=== PATIENT | female | born 1985 | race Hispanic/Latino ===

== ENCOUNTER 2019-01-24 01:36 | Emergency (ER) | payer BC ==
[2019-01-24] MEDS ORDERED: MORPHINE 4 MG/ML SYR ONE (02:17)
[2019-01-24] MEDS ORDERED: LIDOCAINE 1% 20 ML MDV ONE (02:18)
[2019-01-24 02:46] LABS: Absolute Lymphocytes (CBC) 3.2 K/uL (0.7-4.9); Basophils % 0.5 % (0-1.3); Hematocrit 36.8 % (36.0-45.0); Lymphocytes % 23.8 % (15.3-44.8); MPV 8.6 fL (7.6-11.3); RBC Red Blood Cell Count 4.37 M/uL (3.86-4.86)
[2019-01-24 02:56] LABS: ALT/SGPT 33 U/L (12-78); AST/SGOT 14 U/L (15-37); Albumin 3.2 g/dL (3.4-5.0); Alkaline Phosphatase 68 U/L (45-117); BUN Blood Urea Nitrogen 21 mg/dL (7-18); Bicarbonate 28 mmol/L (21-32); Bilirubin Direct < 0.1 mg/dL (0-0.2); Bilirubin Total 0.3 mg/dL (0.2-1.0); Glucose Level 107 mg/dL (74-106); Lipase 95 U/L (73-393); Potassium 3.6 mmol/L (3.5-5.1); Protein, Total 7.6 g/dL (6.4-8.2); Sodium Level 141 mmol/L (136-145)
--- NOTE | 2019-01-24 03:03 | ER ---
Nurse's Notes [facility] Name: Nilda Simeon Age: 33 yrs Sex: Female : 1985 Arrival Date: 01/24/2019 Time: 01:37 Bed 19 Private MD: Diagnosis: Cutaneous abscess of abdominal wall Presentation: 01/24 01:35 Presenting complaint: Patient states: "I have this lower abdominal bump that's aching cc3 since a week now". Transition of care: patient was not received from another setting of care. Onset of symptoms was January 24, 2019. Risk Assessment: Do you want to hurt yourself or someone else? Patient reports no desire to harm self or others. Initial Sepsis Screen: Does the patient meet any 2 criteria? HR > 90 bpm. Does the patient have a suspected source of infection? Yes: Skin breakdown/wound. Care prior to arrival: None. 01:35 Method Of Arrival: Ambulatory cc3 01:35 Acuity: NADINE 4 cc3 Triage Assessment: 01:35 General: Appears in no apparent distress. uncomfortable, Behavior is calm, cooperative, cc3 appropriate for age. Pain: Complains of pain in lower abdomen Quality of pain is described as aching. EENT: No signs and/or symptoms were reported regarding the EENT system. Neuro: Level of Consciousness is awake, alert, obeys commands, Oriented to person, place, time, situation, Appropriate for age. Cardiovascular: Denies chest pain, Capillary refill < 3 seconds in bilateral fingers Patient's skin is warm and dry. Respiratory: Airway is patent Respiratory effort is even, unlabored, Respiratory pattern is regular, symmetrical, Breath sounds are clear bilaterally. GI: Abdomen is round obese, bumps noted on the lower abdominal area. : No signs and/or symptoms were reported regarding the genitourinary system. Derm: Skin is intact, is healthy with good turgor, Skin is pink, warm \\T\\ dry. normal. Musculoskeletal: Circulation, motion, and sensation intact. Range of motion: intact in all extremities. 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 - Social history:: Smoking status: Patient/guardian denies using tobacco, never smoked. - Ebola Screening: : No symptoms or risks identified at this time. Screenin:35 Abuse screen: Denies threats or abuse. Denies injuries from another. Nutritional cc3 screening: No deficits noted. Tuberculosis screening: No symptoms or risk factors identified. Fall Risk Ambulatory Aid- None/Bed Rest/Nurse Assist (0 pts). Gait- Normal/Bed Rest/Wheelchair (0 pts) Mental Status- Oriented to own ability (0 pts). Assessment: 01:35 GI: Bowel sounds present X 4 quads. cc3 02:25 Reassessment: Patient appears in no apparent distress at this time. Patient and/or cc3 family updated on plan of care and expected duration. Pain level reassessed. Patient is alert, oriented x 3, equal unlabored respirations, skin warm/dry/pink. AGRICULTURAL PRODUCE SORTER Clifton did incision and drainage. 03:15 Reassessment: Patient appears in no apparent distress at this time. Patient and/or cc3 family updated on plan of care and expected duration. Pain level reassessed. Patient is alert, oriented x 3, equal unlabored respirations, skin warm/dry/pink. AGRICULTURAL PRODUCE SORTER Clifton discharged the patient home with prescriptions given. IV cannula removed and patient left ER vitally stable and ambulatory. No valuables left in the patient's room. Patient denies pain at this time. Patient states feeling better. Patient states symptoms have improved. Vital Signs: 01:35 BP 149 / 83; Pulse 106; Resp 17 S; Temp 98(O); Pulse Ox 98% on R/A; Weight 106.14 kg cc3 (R); Height 5 ft. 5 in. (165.10 cm) (R); Pain 8/10; 03:05 BP 103 / 77; Pulse 97; Resp 18 S; Pulse Ox 98% on R/A; Pain 0/10; cc3 01:35 Body Mass Index 38.94 (106.14 kg, 165.10 cm) cc3 ED Course: 01:35 Patient has correct armband on for positive identification. Placed in gown. Bed in low cc3 position. Call light in reach. Side rails up X2. Pulse ox on. NIBP on. 01:35 Arm band placed on right wrist. Patient notified of wait time. cc3 01:37 Patient arrived in ED. ds1 01:40 Gokul Kruger MD is Attending Physician. tw4 01:41 Delmy Stephenson is Primary Nurse. cc3 01:52 Inserted saline lock: 20 gauge in right antecubital area, using aseptic technique. jb5 Blood collected. 01:56 Alexsander Lazo FNP-C is [facility]. la1 02:03 Triage completed. cc3 02:25 Assist provider with I \\T\\ D: of an abscess on lower abdomen Set up I\\T\\D tray. Performed cc 3 by Alexsander GARCÍA Wound packed. iodoform gauze, Dressing with 4X4s, Patient tolerated well. 02:52 Eric Chan MD is Referral Physician. la1 03:15 IV discontinued, intact, bleeding controlled, No redness/swelling at site. Pressure cc3 dressing applied. Administered Medications: 02:20 Drug: morphine 4 mg {Note: RASS 0.} Route: IVP; Site: right antecubital; cc3 03:15 Follow up: Response: No adverse reaction; Pain is decreased; RASS: Alert and Calm (0) cc3 02:25 Drug: Lidocaine (1 %) 20 ml {Note: administered by SANCHEZ Lazo.} Volume: 20 ml; Route: cc3 Infiltration; 02:30 Follow up: Response: No adverse reaction cc3 03:00 Drug: Clindamycin 300 mg Route: PO; cc3 03:15 Follow up: Response: No adverse reaction cc3 Outcome: 03:02 Discharge ordered by . la1 03:15 Discharged to home ambulatory. cc3 03:15 Condition: stable 03:15 Discharge instructions given to patient, Instructed on discharge instructions, follow up and referral plans. medication usage, wound care, Demonstrated understanding of instructions, follow-up care, medications, wound care, Prescriptions given X 2. 03:23 Patient left the ED. cc3 Signatures: Aminta Reed ds1 Alexsander Lazo FNP-C FNP-ClaFlor Heller jb5 Gokul Kruger MD MD tw4 Delmy Stephenson cc3
--- NOTE | 2019-01-24 03:03 | EDPHYS ---
Physician Documentation [facility] Name: Nilda Simeon Age: 33 yrs Sex: Female : 1985 Arrival Date: 01/24/2019 Time: 01:37 Bed 19 Private MD: ED Physician Gokul Kruger HPI: 01/24 02:01 This 33 yrs old Female presents to ER via Unassigned with complaints of la1 Abdominal Pain, Nausea. 02:01 The patient presents with abdominal pain in the epigastric area, in the lower abdomen. la1 Onset: The symptoms/episode began/occurred today. The symptoms do not radiate. Associated signs and symptoms: Pertinent negatives: nausea and vomiting, fever. The symptoms are described as sharp. Modifying factors: The symptoms are alleviated by nothing, the symptoms are aggravated by pressure. Severity of pain: At its worst the pain was moderate. The patient has not experienced similar symptoms in the past. Pt reports she noticed an abscess to the suprapubic area on Thursday which has gotten larger in size. Reports waking up in the middle of the night with worsening pain in her belly. Pain is in the epigastric area. . 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 - Social history:: Smoking status: Patient/guardian denies using tobacco, never smoked. - Ebola Screening: : No symptoms or risks identified at this time. ROS: 02:03 Constitutional: Negative for fever, chills, and weight loss, Eyes: Negative for injury, la1 pain, redness, and discharge, ENT: Negative for injury, pain, and discharge, Neck: Negative for injury, pain, and swelling, Cardiovascular: Negative for chest pain, palpitations, and edema, Respiratory: Negative for shortness of breath, cough, wheezing, and pleuritic chest pain. 02:03 Back: Negative for injury and pain. 02:03 Abdomen/GI: Positive for abdominal pain, Negative for nausea, vomiting, and diarrhea, constipation, abdominal distension. 02:03 Skin: Positive for abscess, of the suprapubic area. Exam: 02:05 Constitutional: This is a well developed, well nourished patient who is awake, alert, la1 and in no acute distress. Head/Face: Normocephalic, atraumatic. Eyes: Pupils equal round and reactive to light, extra-ocular motions intact. Periorbital areas with no swelling, redness, or edema. ENT: Mucous membranes moist. Neck: Supple, full range of motion without nuchal rigidity, or vertebral point tenderness. No Meningismus. Chest/axilla: Normal chest wall appearance and motion. Nontender with no deformity. No lesions are appreciated. Cardiovascular: Regular rate and rhythm with a normal S1 and S2. No gallops, murmurs, or rubs. Normal PMI, no JVD. No pulse deficits. Respiratory: Lungs have equal breath sounds bilaterally, clear to auscultation No rales, rhonchi or wheezes noted. No increased work of breathing, no retractions or nasal flaring. 02:05 Abdomen/GI: Inspection: obese Bowel sounds: normal, in all quadrants, active, all quadrants, Palpation: soft, in all quadrants, mild abdominal tenderness, in the epigastric area, suprapubic area, right upper quadrant, left upper quadrant and left lower quadrant. 02:05 Skin: abscess, that is moderate sized, approximately 5 cm(s), of the suprapubic area, with induration, with surrounding cellulitis, that is mild. Vital Signs: 01:35 BP 149 / 83; Pulse 106; Resp 17 S; Temp 98(O); Pulse Ox 98% on R/A; Weight 106.14 kg cc3 (R); Height 5 ft. 5 in. (165.10 cm) (R); Pain 8/10; 03:05 BP 103 / 77; Pulse 97; Resp 18 S; Pulse Ox 98% on R/A; Pain 0/10; cc3 01:35 Body Mass Index 38.94 (106.14 kg, 165.10 cm) cc3 Procedures: 02:46 I \T\ D: Incision and drainage was performed for an abscess of the suprapubic area la1 Prepped with Betadine, Anesthetized with 10 ml's 1% Lidocaine. Incised with #10 blade. Drained moderate amount purulent fluid. serosanguinous fluid. Loculations removed. Abscess cavity explored. Packed with iodoform gauze, the patient tolerated the procedure well. MDM: 01:40 Patient medically screened. tw4 01/24 01:40 Order name: Basic Metabolic Panel 4 01/24 01:40 Order name: CBC with Diff; Complete Time: 02:50 4 01/24 01:40 Order name: Creatinine for Radiology 4 01/24 01:40 Order name: Hepatic Function 4 01/24 01:40 Order name: Lipase 4 01/24 01:40 Order name: IV Saline Lock; Complete Time: 02:11 tw4 01/24 01:40 Order name: Labs collected and sent; Complete Time: 02:11 tw4 01/24 02:05 Order name: Dressing - Wound; Complete Time: 03:01 la1 01/24 02:05 Order name: Gloves, Sterile; Complete Time: 02:23 la1 01/24 02:05 Order name: I\T\D Setup; Complete Time: 02:23 la1 01/24 02:05 Order name: Scalpel; Complete Time: 02:23 la1 Administered Medications: 02:20 Drug: morphine 4 mg {Note: RASS 0.} Route: IVP; Site: right antecubital; cc3 03:15 Follow up: Response: No adverse reaction; Pain is decreased; RASS: Alert and Calm (0) cc3 02:25 Drug: Lidocaine (1 %) 20 ml {Note: administered by SUPPLY CHAIN PROGRAM MANAGER Attema.} Volume: 20 ml; Route: cc3 Infiltration; 02:30 Follow up: Response: No adverse reaction cc3 03:00 Drug: Clindamycin 300 mg Route: PO; cc3 03:15 Follow up: Response: No adverse reaction cc3 Disposition: 06:03 Co-signature as Attending Physician, Gokul Kruger MD I agree with the [facility] plan of care. Disposition: 01/24/19 03:02 Discharged to Home. Impression: Cutaneous abscess of abdominal wall. - Condition is Stable. - Discharge Instructions: Skin Abscess, Incision and Drainage, Incision and Drainage, Care After. - Prescriptions for Clindamycin HCl 300 mg Oral Capsule - take 1 capsule by ORAL route every 6 hours for 10 days; 40 capsule. Tylenol- Codeine #3 300-30 mg Oral Tablet - take 2 tablet by ORAL route every 6 hours As needed; 6 tablet. - Medication Reconciliation Form, Thank You Letter, Antibiotic Education form. - Follow up: Eric Chan MD; When: 1 - 2 days; Reason: Wound Recheck, Recheck today's complaints, Re-evaluation by your physician. - Problem is new. - Symptoms have improved. Signatures: Dispatcher [employer] EDMS Alexsander Lazo, SENIOR TECHNOLOGIST-C SENIOR TECHNOLOGIST-Cla1 Gokul Kruger MD MD 4 Delmy Stephenson 3 Corrections: (The following items were deleted from the chart) 03:23 01:40 Urine Dipstick-Ancillary ordered. 4 cc3 03:23 01:40 Urine Test ordered. [facility] cc3 03:23 03:02 01/24/2019 03:02 Discharged to Home. Impression: Cutaneous abscess of abdominal cc3 wall. Condition is Stable. Forms are Medication Reconciliation Form, Thank You Letter, Antibiotic Education, Prescription Opioid Use. Follow up: Eric Chan; When: 1 - 2 days; Reason: Wound Recheck, Recheck today's complaints, Re-evaluation by your physician. Problem is new. Symptoms have improved. la1
[2019-01-24] MEDS ORDERED: CLINDAMYCIN HCL 150 MG CAP ONE (03:05)
== END 2019-01-24 03:23 | disposition home or self-care (01) ==
LOC: ER 01:36
PROC: 0J9C0ZZ Drainage of Pelvic Region Subcutaneous Tissue and Fascia, Open Approach (ICD-10-PCS; principal; 2019-01-24)
DX: L02.211 Cutaneous abscess of abdominal wall (principal)
CPT/HCPCS: 36415; 80048; 80076; 83690; 85025; 96374; 99284

== ENCOUNTER 2022-07-07 21:47 | Emergency (ER) | payer BC, OTHER ==
--- OUTSIDE RECORDS SUMMARY | 2022-07-07 21:50 | XMS REPORT | Continuity of Care Document ---
:1985 Author Organization [facility] t Address [address] [place] [id number] Care Team Providers Name Role Phone PURNIMA HUGHES Primary Care Physician Unavailable PREMA THAPA Attending Clinician Unavailable Sharon Santiago Attending Clinician SHARON HARRIS Attending Clinician Unavailable Pob, [facility] Main Attending Clinician Unavailable Purnima Boyer Attending Clinician PURNIMA HUGHES Attending Clinician Unavailable Doctor Unassigned, [place] Attending Clinician Unavailable EMILY SUAREZ Attending Clinician Unavailable Payers Payer Name Policy Type Policy Number Effective Date Expiration Date S ource Problems Condition Condition Condition Status Onset Resolution Last Treating Co mments Source Name Details Category Date Date Treatment Clinician Date 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 05-21 st cells cells 00:00: Hospita cannot cannot 00 l exclude exclude high grade high grade squamous squamous intraepith intraepith elial elial lesion on lesion on cytologic cytologic smear of smear of cervix cervix (ASC-H) (ASC-H) Cervical Cervical Disease Active Metho di high risk high risk 4-05 st HPV (human HPV (human 00:00: Ho spita papillomav papillomav 00 l irus) test irus) test positive positive Dysplasia Dysplasia Disease Active Met hodi of cervix, of cervix, -05 st low grade low grade 00:00: Hosp hillary (KRISTI 1) (KRISTI 1) 00 l KRISTI III KRISTI III Disease Active Overview: Meth bre with with 6-[address] severe severe 00:00: g of this Hospita dysplasia dysplasia 00 note l might be different from the original. Added automatic ally from request for surgery [id number] No known No known Disease Unive rs active active ity of problems problems [facility] Exercises Exercises Disease Active Overview: Methodi 5 to 6 5 to [address] times per times per g of this H ospita week week note l might be different from the original. Cardio and weight lifting for 1 hour, no SOB, CP. Allergies, Adverse Reactions, Alerts Allergy Allergy Status Severity Reaction(s) Onset Inactive Treating Comm ents Source Name Type Date Date Clinician SULFA DRUG Active Hives 2020-02 [facility] DYNE 2 ity of 00:00: [place] 00 Medical Branch Sulfa Propensi Active Hives 2020-02 Univers Dyne ty to 03-21 ity of adverse 00:00: [place] reaction 00 Medical s Branch Amoxicil Propensi Active GI Method i margarita-Pot ty to Intolerance 05 st Clavulan adverse 00:00: Hospita ate reaction 00 l s to drug Sulfa Propensi Active Rash Methodi (Sulfona ty to [address] mide adverse 00:00: Hospita Antibiot reaction 00 l ics) s to drug Family History Family Member Diagnosis Comments Start Date Stop Date Source Natural father Heart disease [facility] Maternal aunt Stomach cancer [facility] Natural mother Diabetes [facility] Paternal aunt Skin cancer [facility] Paternal uncle Cancer [facility] Natural sister Heart disease [facility] Social History Social Habit Start Date Stop Date Quantity Comments Source Exposure to Not sure University of SARS-CoV-2 (event) [facility] Gender identity [facility] Sexual orientation Method ist [facility] History of Social 2022-04-25 2022-04-[address] function 00:00:00 00:00:00 Hospital Alcohol intake 2021-05-21 2021-05-21 Lifetime [facility] 00:00:00 00:00:00 non-drinker Hospital (finding) Tobacco use and 2018-07-29 2018-07-29 Smokeless [facility] exposure 00:00:00 00:00:00 tobacco non-user Hospital Sex Assigned At [birth year] [facility] 00:00:00 00:00:00 Hospital Smoking Status Start Date Stop Date Source Never smoked tobacco [facility] Medications Ordered Filled Start Stop Current Ordering Indication Dosage Frequency Signature Comments Components Source Medication Medication Date Date Medication? Clinician (SIG) Name Name cholecalcif Yes 1000U QD Take 1,000 Methodi anne marie, 4-[address] vitamin D3, 10:43: mouth Hospi ta (VITAMIN 43 daily. l D3) 1,000 unit tablet APPLE CIDER Yes Take by Met hodi VINEGAR 4-[address] ORAL 10:43: Hospita 43 l ergocalcife Yes Take by Met hodi rol 4-[address] (DRISDOL) 10:43: Hospita 200 mcg/mL 43 l (8,000 unit/mL) drops busPIRone Yes 10mg Take 10 mg Me thodi (BUSPAR) 10 4-[address] MG tablet 10:43: as needed. Ho spita 43 l buPROPion Yes [id number] 150mg Take 1 U nivers XL 1-05 tablet by ity of (WELLBUTRIN 00:00: mouth [place] XL) 150 mg 00 daily. Medical 24 hr Branch tablet buPROPion Yes 1{tbl} QD Take 1 Meth bre XL 1-[address] (WELLBUTRIN 00:00: mouth Hospi ta XL) 150 MG 00 daily. l 24 hr tablet norgestimat 2020-02 Yes 1{tbl} Take 1 Un rosa maria e-ethinyl 2-03 tablet by ity o f estradioL 10:34: mouth [place] (SPRINTEC) 33 daily. Medical 0.25-35 Branch mg-mcg per tablet ergocalcife 2020-02 Yes Take by Uni vers rol, 2-03 mouth. ity of vitamin D2, 10:34: [place] (VITAMIN D 33 Medical ORAL) Branch busPIRone 2020-02- No [id number] 10mg Take 1 Univers 10 mg 2-04 16-18 tablet by ity of tablet 00:00: 05:59 mouth 2 [place] 00 :00 (two) Medical times Branch daily as needed (anxiety) for up to 45 days. buPROPion 2020-02- No [id number] 150mg Take 1 Univers XL 2-03 -05 tablet by bria of (WELLBUTRIN 00:00: [place] XL) 150 mg 00 :00 daily for [facility] 24 hr 45 days. Branch tablet YECENIAINTEC, 2018-0 Yes 1{tbl} Take 1 Meth bre 28, 0.25-35 - tablet by st mg-mcg per 00:00: mouth Hospit a tablet 00 daily. l Immunizations Ordered Filled Immunization Date Status Comments [facility] e Immunization Name Name SARS-COV-2 COVID-19 2021-01-11 Completed Unive rsity of MODERNA VACCINE 00:00:00 [facility] SARS-COV-2 COVID-19 2020-12-15 Completed Unive rsity of MODERNA VACCINE 00:00:00 [facility] Vital Signs Vital Name Observation Time Observation Value Comments Source Systolic blood 2021-02-20 22:42:00 106 mm[Hg] Univer sity of pressure [facility] Diastolic blood 2021-02-20 22:42:00 72 mm[Hg] Unive rsity of pressure [facility] Heart rate 2021-02-20 22:42:00 71 /min [facility] Body temperature 2021-02-20 22:42:00 37.17 Melinda [facility] [place] [facility] Body height 2021-02-20 22:42:[address] [facility] Body weight 2021-02-20 22:42:[address] [facility] BMI 2021-02-20 22:42:00 24.49 kg/m2 [facility] Oxygen saturation in 2021-02-20 22:42:00 99 /min [facility] Arterial blood by [facility] Pulse oximetry Branch Procedures This patient has no known procedures. Plan of Care Planned Activity Planned Date Details Comments Source Future Scheduled 2022-06-25 Hepatitis C [facility] Test 11:27:02 screening (procedure) [code = 388755212] Future Scheduled 2022-06-25 COVID-19 [facility]ACC[facility] ([facility] 11:27:02 - Booster for Moderna series) [code = COVID-19 VACCINE (3 - Booster for Moderna series)] Future Scheduled 2022-06-25 Screening for [facility] Hospital Test 11:27:02 malignant neoplasm of cervix (procedure) [code = 524272003] Future Scheduled 2022-06-25 INFLUENZA VACCINE Method ist Hospital Test 11:27:02 [code = INFLUENZA VACCINE] Encounters Start End Encounter Admission Attending Care Care Encounter Source Date/Time Date/Time Type Type Clinicians Facility Department ID 2021-05-21 2021-05-21 Outpatient ELIER [facility] [id number] 00:00:00 00:00:00 PREMA Karimi [facility] 2021-02-20 2021[facility]02-20 [facility] [id number] Univers 16:30:00 17:12:02 Visit Sharon LYNCH [id number] i ty pricila CEBALLOS [id number] Duran as THUY?BLEA [id number] Ms dical EY [address] [place] [address] MEDICAL OFFICE BUILDING 2021-02-20 2021-02-20 [facility] [id number] Univers 16:30:00 17:12:02 SHARON boocarrie [facility] 2021-02-20 2021-02-20 Outpatient Haresh HARRIS [facility] [id number] Univers 16:30:00 17:12:02 SHARON rajeevcarrie [facility] 2021-01-19 2021-01-19 Cargoman Omar, Jam Lab Main [facility] [id number] Univers 09:34:27 09:49:27 Visit Purnima Hughes [id number] rajeevy pricila [id number] [place] PROF[place] [id number] Ms dicdarron [facility] 353 Branch BUILDING 2021-01-19 2021-01-19 Outpatient R YOAV [facility] [id number] Univers 08:00:00 08:00:00 PURNIMA bria [facility] 2021-01-18 2021-01-18 [facility] [id number] Univers 10:24:08 11:32:11 Visit Purnima LYNCH [id number] it y rpicila CEBALLOS [id number] Duran as THUY?BLEA [id number] Ms adriel PROSTEPHANIA [address] [place] [address] MEDICAL OFFICE [facility] 2021-01-18 2021-01-18 Outpatient Haresh HUGHES [facility] [id number] Univers 10:00:00 11:32:11 PURNIMA ity of [facility] 2021-01-18 2021-01-18 Orders Doctor HEIDE [id number] Univers 00:00:00 00:00:00 Only Unassigned, WESLEY [id number] ity of [place] [facility] [id number] Duran as [id number] [address] 2021-01-18 2021-01-18 Telephone [place] [facility] [id number] [facility] 00:00:00 00:00:00 [facility] [id number] i ty of HENRY [id number] Duran as THUY?BLEA [id number] Ms xavi[address] MEDICAL OFFICE [facility] 2019-06-15 2019-06-15 Outpatient ERICK [facility] [id number] 00:00:00 00:00:00 TARRIK [address] Results This patient has no known results.
[2022-07-07] MEDS ORDERED: NA CHLORIDE 0.9% 1,000 ML ONE (23:15)
[2022-07-07 23:44] LABS: Specific Gravity 1.016 (1.005-1.030); Urine Bilirubin NEGATIVE (Negative); Urine Blood Negative (Negative); Urine Clarity Clear (Clear); Urine Color Light-Yellow (Yellow); Urine Glucose NEGATIVE (Negative); Urine Protein NEGATIVE (Negative); Urine Urobilinogen Normal (Normal); Urine pH 6.5 (5.0-7.0)
[2022-07-07 23:50] LABS: Absolute Lymphocytes (CBC) 0.9 K/uL (0.7-4.9); Hematocrit 34.3 % (36.0-45.0); Lymphocytes % 14.4 % (15.3-44.8); MCV 89.3 fL (80-100); MPV 7.7 fL (7.6-11.3); RBC Red Blood Cell Count 3.84 M/uL (3.86-4.86)
[2022-07-07 23:55] LABS: Specific Gravity 1.016 (1.005-1.030)
[2022-07-08 00:01] LABS: Albumin 2.9 g/dL (3.4-5.0); Bilirubin Total 0.2 mg/dL (0.2-1.0); Potassium 3.2 mEq/L (3.5-5.1)
--- NOTE | 2022-07-08 01:30 | EDPHYS ---
Physician Documentation [facility] Name: Nilda Simeon Age: 37 yrs Sex: Female : 1985 Arrival Date: 07/07/2022 Time: 21:47 Bed 17 Private MD: ED Physician Elie Sanders HPI: 07/07 22:43 This 37 yrs old Female presents to ER via Ambulatory with complaints of jmm Abdominal Pain, Vomiting, Fever. 22:43 The patient presents with abdominal pain. Onset: The symptoms/episode began/occurred jmm gradually, this morning. The symptoms do not radiate. Associated signs and symptoms: Pertinent positives: nausea and vomiting. The symptoms are described as achy. Modifying factors: The symptoms are alleviated by nothing, the symptoms are aggravated by vomiting. 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 patient also complains of sore throat. Denies dysuria. Denies flank pain. . 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 - Social history:: Smoking status: Patient denies any tobacco usage or history of. ROS: 22:43 Cardiovascular: Negative for chest pain, palpitations, and edema. jmm 22:43 Respiratory: Negative for shortness of breath, cough, wheezing, and pleuritic chest pain. 22:43 Constitutional: Positive for body aches. 22:43 Abdomen/GI: Positive for abdominal pain. 22:43 All other systems are negative. Exam: 22:43 Constitutional: This is a well developed, well nourished patient who is awake, alert, jmm and in no acute distress. Head/Face: atraumatic. Eyes: EOMI, no conjunctival erythema appreciated ENT: Moist Mucus Membranes Neck: Trachea midline, Supple Chest/axilla: Normal chest wall appearance and motion. Cardiovascular: Regular rate and rhythm. No edema appreciated Respiratory: Normal respirations, no respiratory distress appreciated 22:43 Back: Normal ROM Skin: General appearance color normal MS/ Extremity: Moves all extremities, no obvious deformities appreciated, no edema noted to the lower extremities Neuro: Awake and alert Psych: Behavior is normal, Mood is normal, Patient is cooperative and pleasant 22:43 Abdomen/GI: Inspection: abdomen appears normal, Bowel sounds: normal, Palpation: mild abdominal tenderness, in all quadrants. Vital Signs: 22:32 BP 131 / 94; Pulse 88; Resp 19; Temp 98.8(TE); Pulse Ox 100% ; Weight 71.21 kg; Height kd3 5 ft. 6 in. ; 07/08 00:03 BP 108 / 73; Pulse 81; Resp 16; Pulse Ox 100% on R/A; jb4 07/07 22:32 Body Mass Index 25.34 (71.21 kg, 167.64 cm) kd3 MDM: 07/07 22:43 Patient medically screened. [facility] 07/08 00:59 Differential diagnosis: bowel obstruction, cholecystitis, Cholelithiasis, jmm diverticulitis, non-specific abd pain. Data reviewed: vital signs, nurses notes. 01:28 Consideration of Admission/Observation Escalation of care including [facility] admission/observation considered. I considered the following discharge prescriptions or medication management in the emergency department Medications were administered in the Emergency Department. See MAR. Counseling: I had a detailed discussion with the patient and/or guardian regarding: the historical points, exam findings, and any diagnostic results supporting the discharge/admit diagnosis, lab results, radiology results, the need for outpatient follow up, to return to the emergency department if symptoms worsen or persist or if there are any questions or concerns that arise at home. 07/07 22:46 Order name: CBC with Diff; Complete Time: 23:57 [facility] 07/07 22:46 Order name: CMP; Complete Time: 00:38 [facility] 07/07 22:46 Order name: Lipase; Complete Time: 00:38 [facility] 07/07 22:46 Order name: Test, Urine; Complete Time: 00:01 [facility] 07/07 22:46 Order name: Urinalysis w/ reflexes; Complete Time: 23:46 [facility] 07/07 22:46 Order name: Strep [facility] 07/07 22:46 Order name: [place] Screen Profile; Complete Time: 00:38 [facility] 07/08 01:31 Order name: Throat Culture [facility] 07/07 22:46 Order name: CT Abd/Pelvis - IV Contrast Only [facility] 07/07 22:46 Order name: IV Saline Lock; Complete Time: 23:09 [facility] 07/07 22:46 Order name: Labs collected and sent; Complete Time: 23:09 [facility] Administered Medications: 07/07 23:12 Drug: NS 0.9% IV 1000 ml Route: IV; Rate: 1 bolus; Site: right antecubital; jb4 23:13 Not Given (Patient Refused): Ondansetron IVP 4 mg IVP once; over 2 minutes jb4 Disposition: 07/08 01:28 Chart complete. [facility] Disposition Summary: 07/08/22 01:29 Discharge Ordered Location: Home [facility] Condition: Stable [facility] Diagnosis - Abdominal pain, Generalized [facility] Followup: [facility] - With: Private Physician - When: 2 - 3 days - Reason: Recheck today's complaints, Continuance of care, Re-evaluation by your physician Followup: [facility] - With: Chino Akins MD - When: 2 - 3 days - Reason: Recheck today's complaints, Continuance of care, Re-evaluation by your physician Discharge Instructions: - Discharge Summary Sheet [facility] - Abdominal Pain, Adult [facility] Forms: - Medication Reconciliation Form [facility] - Thank You Letter [facility] - Antibiotic Education [facility] - Prescription Opioid Use [facility] Prescriptions: - ondansetron 4 mg Oral Tablet,disintegrating - take 1 tablet by ORAL route every 4-6 hours As needed as needed for nausea and m vomiting; 30 tablet; Refills: 0, Product Selection Permitted - Carafate 1 gram Oral Tablet - take 1 tablet by ORAL route 4 times per day take on an empty stomach, beginning jm on waking and last dose at bedtime; 100 tablet; Refills: 0, Product Selection Permitted - Pepcid 20 mg Oral Tablet - take 1 tablet by ORAL route once daily; 20 tablet; Refills: 0, Product [facility] Selection Permitted - dicyclomine 20 mg Oral Tablet - take 1 tablet by ORAL route 4 times per day As needed; 30 tablet; Refills: 0, [facility] Product Selection Permitted Signatures: Dispatcher [employer] EDAndre Celeste PA PA Mikhail Schneider RN RN jb4 Rosa Rodríguez RN RN kd3 Corrections: (The following items were deleted from the chart) 07/07 23:39 22:47 SARS-COV-2 Antigen Rapid+I.LAB.BRZ ordered. EDMS EDMS 23:39 22:47 Influenza Screen (A \T\ B)+BA.LAB.BRZ ordered. EDMS EDMS
--- NOTE | 2022-07-08 01:30 | ER ---
Nurse's Notes [facility] Name: Nilda Simeon Age: 37 yrs Sex: Female : 1985 Arrival Date: 07/07/2022 Time: 21:47 Bed 17 Private MD: Diagnosis: Abdominal pain, Generalized Presentation: 07/07 22:33 Chief complaint: Patient states: Yesterday my stomach was hurting and this morning I kd3 started feeling achy. Everything hurts, i did not take my temperature but i know i had fever at home. I vomited this morning. Coronavirus screen: Vaccine status: Patient reports receiving the 2nd dose of the covid vaccine. Ebola Screen: No symptoms or risks identified at this time. Initial Sepsis Screen: Does the patient meet any 2 criteria? No. Patient's initial sepsis screen is negative. Does the patient have a suspected source of infection? No. Patient's initial sepsis screen is negative. Risk Assessment: Do you want to hurt yourself or someone else? Patient reports no desire to harm self or others. Onset of symptoms was July 07, 2022. 22:33 Method Of Arrival: Ambulatory kd3 22:33 Acuity: NADINE 3 kd3 Triage Assessment: 22:35 General: Appears ill, Behavior is calm, cooperative. Pain: Complains of pain in body kd3 aches. GI: Abdomen is non-distended, Reports nausea, vomiting. 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 - Social history:: Smoking status: Patient denies any tobacco usage or history of. Screenin/23 01:48 [facility] ED Fall Risk Assessment (Adult) History of falling in the last 3 months, jb4 including since admission No falls in past 3 months (0 pts) Confusion or Disorientation No (0 pts) Score/Fall Risk Level 0 - 2 = Low Risk Oriented to surroundings, Maintained a safe environment. Abuse screen: Denies threats or abuse. Nutritional screening: No deficits noted. Tuberculosis screening: No symptoms or risk factors identified. Assessment: 07/07 23:35 General: Appears in no apparent distress. comfortable, Behavior is calm, cooperative, jb4 appropriate for age. Pain: Complains of pain in soar throat Pain does not radiate. Neuro: Level of Consciousness is awake, alert, obeys commands, Oriented to person, place, time, situation. Cardiovascular: Patient's skin is warm and dry. Respiratory: Airway is patent Respiratory effort is even, unlabored, Respiratory pattern is regular, symmetrical. GI: No signs and/or symptoms were reported involving the gastrointestinal system. : No signs and/or symptoms were reported regarding the genitourinary system. EENT: Throat is clear with gag reflex present. Derm: Skin is intact, Skin is pink, warm \T\ dry. 07/08 01:48 Reassessment: Patient appears in no apparent distress at this time. Patient and/or jb4 family updated on plan of care and expected duration. Pain level reassessed. Patient is alert, oriented x 3, equal unlabored respirations, skin warm/dry/pink. Vital Signs: 07/07 22:32 BP 131 / 94; Pulse 88; Resp 19; Temp 98.8(TE); Pulse Ox 100% ; Weight 71.21 kg; Height kd3 5 ft. 6 in. ; 07/08 00:03 BP 108 / 73; Pulse 81; Resp 16; Pulse Ox 100% on R/A; jb4 07/07 22:32 Body Mass Index 25.34 (71.21 kg, 167.64 cm) 3 ED Course: 07/07 21:52 Patient arrived in ED. ja2 21:53 [facility] 21:53 Elie Sanders MD is Attending Physician. [facility] 22:35 Triage completed. kd3 22:35 Arm band placed on right wrist. kd3 23:09 Initial lab(s) drawn, by [facility], sent to lab. Inserted saline lock: 20 gauge in right jw7 antecubital area, using aseptic technique. Blood collected. 23:09 [place] Screen Profile Sent. jw7 23:10 Strep Sent. jw7 23:10 CBC with Diff Sent. jw7 23:10 CMP Sent. jw7 23:10 Lipase Sent. jw7 23:10 Test, Urine Sent. jw7 23:10 Urinalysis w/ reflexes Sent. jw7 07/08 00:03 Mikhail Myers, DIAN is Primary Nurse. jb4 00:40 CT Abd/Pelvis - IV Contrast Only In Process Unspecified. EDMS 01:29 Chino Akins MD is Referral Physician. jmm 01:48 Patient has correct armband on for positive identification. Bed in low position. Call jb4 light in reach. Side rails up X 1. Client placed on continuous cardiac and pulse oximetry monitoring. NIBP monitoring applied. 01:48 No provider procedures requiring assistance completed. IV discontinued, intact, jb4 bleeding controlled, No redness/swelling at site. Pressure dressing applied. Administered Medications: 07/07 23:12 Drug: NS 0.9% IV 1000 ml Route: IV; Rate: 1 bolus; Site: right antecubital; jb4 23:13 Not Given (Patient Refused): Ondansetron IVP 4 mg IVP once; over 2 minutes jb4 Medication: 07/08 01:48 VIS not applicable for this client. jb4 Outcome: 01:29 Discharge ordered by MD. jmm 01:48 Discharged to home ambulatory. jb4 01:48 Condition: stable 01:48 Discharge instructions given to patient, Instructed on discharge instructions, follow up and referral plans. medication usage, Demonstrated understanding of instructions, follow-up care, medications, Prescriptions given X 4. 01:49 Patient left the ED. jb4 Signatures: Dispatcher [employer] EDMS Andre Macedo PA PA jmm Bryson, James, RN RN jb4 Trinity Bowers Kyli, RN RN kd3 Janelle Tellez7
[2022-07-08 02:49] VITALS: TEMP 98.8; O2SAT 100
[2022-07-08 02:51] VITALS: BP 108/73
--- NOTE | 2022-07-08 13:12 | RAD REPORT ---
EXAM DESCRIPTION: Abdomen Pelvis W Contrast CLINICAL HISTORY: 37 years Female abdominal pain, fever COMPARISON: None TECHNIQUE: Images were obtained in axial, sagittal, and coronal planes. This exam was performed according to our departmental dose-optimization program which includes use of Automated Exposure Control, adjustment of the mA and/or kV according to patient size and/or use of i terative reconstruction technique. FINDINGS: Prior cholecystectomy. Mild intrahepatic biliary dilatation centrally. No focal hepatic ab normality. Unremarkable spleen, pancreas, and adrenal glands bilaterally. No obstructing renal or ureteral calculi bilaterally. No hydronephrosis bilaterally. Moderately diste nded bladder. Deviation uterus of the right. Appendix not well identified however no secondary signs for appendicitis. Punctate densities within c olon possibly ingested medication or foreign bodies. No bowel obstruction,, perforation, or inflammat ion. No abnormality of abdominal aorta or portal vein. No adenopathy or abnormal fluid collections seen. No acute osseous abnormality. No abnormality lower lungs bilaterally. IMPRESSION: Punctate densities within colon, possibly related to residual contrast, and ingested med ication, or foreign bodies. Otherwise no acute intra-abdominal abnormality. Electronically signed by: Sonia Chappell MD 07/08/2022 1:24 AM CDT Due to temporary technical issues with the PACS/Fluency reporting system, reports are being signed by the in house radiologists without review as a courtesy to insure prompt reporting. The interpreting radiologist is fully responsible for the content of the report.
== END 2022-07-08 01:49 | disposition home or self-care (01) ==
LOC: ER 21:47
DX: R10.84 Generalized abdominal pain (principal); Z88.2 Allergy status to sulfonamides
CPT/HCPCS: 87070; 85025; 36415; 86308; 81025; 87081; 81003; 83690; 80053; 74177; Q9967; J7030

== ENCOUNTER 2022-07-24 16:50 | Emergency (ER) | payer OTHER, BC ==
--- OUTSIDE RECORDS SUMMARY | 2022-07-24 16:53 | XMS REPORT | Continuity of Care Document ---
:1985 Author Organization [facility] t Address [address] [facility] [address] [place] [id number] Care Team Providers Name Role Phone Asked, No Pcp Primary Care Physician Unavailable PREMA THAPA Attending Clinician Unavailable Sharon Santiago Attending Clinician SHARON HARRIS Attending Clinician Unavailable Pob, [facility] Main Attending Clinician Unavailable Purnima Boyer Attending Clinician PURNIMA HUGHES Attending Clinician Unavailable Doctor Unassigned, [place] Attending Clinician Unavailable EMILY SUAREZ Attending Clinician Unavailable Payers Payer Name Policy Type Policy Number Effective Date Expiration Date S ource Problems Condition Condition Condition Status Onset Resolution Last Treating Co mments Source Name Details Category Date Date Treatment Clinician Date 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 05-21 cells cells 00:00: Hospita cannot cannot 00 l exclude exclude high grade high grade squamous squamous intraepith intraepith elial elial lesion on lesion on cytologic cytologic smear of smear of cervix cervix (ASC-H) (ASC-H) Cervical Cervical Disease Active Metho di high risk high risk 05-21 HPV (human HPV (human 00:00: Ho spita papillomav papillomav 00 l irus) test irus) test positive positive Dysplasia Dysplasia Disease Active Met hodi of cervix, of cervix, 05-21 st low grade low grade 00:00: Hosp hillary (KRISTI 1) (KRISTI 1) 00 l KRISTI III 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 Added automatic ally from request for surgery [id number] Exercises Exercises Disease Active Overview: Methodi 5 to 6 5 to [address] times per times per g of this H ospita week week note l might be different from the original. Cardio and weight lifting for 1 hour, no SOB, CP. No known No known Disease Unive rs active active ity of problems problems [facility] Allergies, Adverse Reactions, Alerts Allergy Allergy Status Severity Reaction(s) Onset Inactive Treating Comm ents Source Name Type Date Date Clinician SULFA DRUG Active Hives 2020-02 Univers DYNE 2- ity of 00:00: [place] 00 Medical Branch [...] Stop Date Source Natural father Heart disease [facility] Maternal aunt Stomach cancer [facility] Natural mother Diabetes [facility] Paternal aunt Skin cancer [facility] Paternal uncle Cancer [facility] Natural sister Heart disease [facility] Social History Social Habit Start Date Stop Date Quantity Comments Source Gender identity [facility] Sexual orientation [facility] Exposure to Not sure University of SARS-CoV-2 (event) [facility] History of Social 2022-04-25 2022-04-[address] function 00:00:00 00:00:00 Hospital Alcohol intake 2021-05-21 2021-05-21 Lifetime [facility] 00:00:00 00:00:00 non-drinker Hospital (finding) Tobacco use and 2018-07-29 2018-07-29 Smokeless [facility] exposure 00:00:00 00:00:00 tobacco non-user Hospital Sex Assigned At [birth year] [facility] 00:00:00 00:00:00 Hospital Smoking Status Start Date Stop Date Source Never smoked tobacco [facility] Medications Ordered Filled Start Stop Current Ordering Indication Dosage Frequency Signature Comments Components Source Medication Medication Date Date Medication? Clinician (SIG) Name Name cholecalcif 2021-0 Yes 1000U QD Take 1,000 Methodi anne marie, 4-[address] vitamin D3, 10:43: mouth Hospi ta (VITAMIN 43 daily. l D3) 1,000 unit tablet APPLE CIDER 2021-0 Yes Take by Met hodi VINEGAR 4-[address] ORAL 10:43: Hospita 43 l ergocalcife 2021-0 Yes Take by Met hodi rol 4-[address] (DRISDOL) 10:43: Hospita 200 mcg/mL 43 l (8,000 unit/mL) drops busPIRone 2021-0 Yes 10mg Take 10 mg Me thodi (BUSPAR) 10 4-[address] MG tablet 10:43: as needed. Ho spita 43 l cholecalcif 2021-0 Yes 1000U QD Take 1,000 Methodi anne marie, 4-[address] vitamin D3, 10:43: mouth Hospi ta (VITAMIN 43 daily. l D3) 1,000 unit tablet APPLE CIDER 2021-0 Yes Take by Met hodi VINEGAR 4-[address] ORAL 10:43: Hospita 43 l ergocalcife 2-0 Yes Take by Met hodi rol 4-[address] (DRISDOL) 10:43: Hospita 200 mcg/mL 43 l (8,000 unit/mL) drops busPIRone 2021-0 Yes 10mg Take 10 mg Me thodi (BUSPAR) 10 4-[address] MG tablet 10:43: as needed. Ho spita 43 l buPROPion 2021-0 Yes 1{tbl} QD Take 1 Meth bre XL 1-[address] (WELLBUTRIN 00:00: mouth Hospi ta XL) 150 MG 00 daily. l 24 hr tablet buPROPion 2021-0 Yes [id number] 150mg Take 1 U nivers XL 1-05 tablet by ity of (WELLBUTRIN 00:00: mouth [place] XL) 150 mg 00 daily. Medical 24 hr Branch tablet buPROPion 2021-0 Yes 1{tbl} QD Take 1 Meth bre XL 1-[address] (WELLBUTRIN 00:00: mouth Hospi ta XL) 150 MG 00 daily. l 24 hr tablet norgestimat 2020-02 Yes 1{tbl} Take 1 Un rosa maria e-ethinyl 2-03 tablet by ity o f estradioL 10:34: mouth [place] (SPRINTEC) 33 daily. Medical 0.25-35 Branch mg-mcg per tablet ergocalcife 2020-02 Yes Take by Uni vers rol, 2-03 mouth. ity of vitamin D2, 10:34: [place] (VITAMIN D 33 Medical ORAL) Branch busPIRone 2020-02- No [id number] 10mg Take 1 Univers 10 mg 2-18 tablet by ity of tablet 00:00: 05:59 mouth 2 [place] 00 :00 (two) Medical times Branch daily as needed (anxiety) for up to 45 days. buPROPion 2020-02- No [id number] 150mg Take 1 Univers XL 2-03 01-05 tablet by ity of (WELLBUTRIN 00:00: 00:[place] XL) 150 mg 00 :00 daily for Medi jamal 24 hr 45 days. Branch tablet [facility] Yes 1{tbl} Take 1 Meth bre 28, 0.25-35 5-[address] mg-mcg per 00:00: mouth Hospit a tablet 00 daily. l SPRINTEC, Yes 1{tbl} Take 1 Meth bre 28, 0.25-35 5-[address] mg-mcg per 00:00: mouth Hospit a tablet 00 daily. l Immunizations Ordered Filled Immunization Date Status Comments [facility] e Immunization Name Name SARS-COV-2 COVID-19 2021-01-11 Completed Unive rsity of MODERNA VACCINE 00:00:00 [facility] SARS-COV-2 COVID-19 2020-12-15 Completed Unive rsity of MODERNA VACCINE 00:00:00 [facility] Vital Signs Vital Name Observation Time Observation Value Comments Source Systolic blood 2021-02-20 22:42:00 106 mm[Hg] Univer sity of pressure [facility] Diastolic blood 2021-02-20 22:42:00 72 mm[Hg] Unive rsity of pressure [facility] Heart rate 2021-02-20 22:42:00 71 /min [facility] Body temperature 2021-02-20 22:42:00 37.17 [facility] Body height 2021-02-20 22:42:00 167.6 cm [facility] Body weight 2021-02-20 22:42:00 68.811 kg [facility] BMI 2021-02-20 22:42:00 24.49 kg/m2 [facility] Oxygen saturation in 2021-02-20 22:42:00 99 /min [facility] Arterial blood by [facility] Pulse oximetry Branch Procedures This patient has no known procedures. Plan of Care Planned Activity Planned Date Details Comments Source Future Scheduled 2022-06-25 COVID-19 VACCINE (3 [facility] Test 11:27:02 - Booster for Moderna series) [code = COVID-19 VACCINE (3 - Booster for Moderna series)] Future Scheduled 2022-06-25 Screening for [facility] Test 11:27:02 malignant neoplasm of cervix (procedure) [code = 565520317] Future Scheduled 2022-06-25 INFLUENZA VACCINE [facility] Test 11:27:02 [code = INFLUENZA VACCINE] Future Scheduled 2022-06-25 Hepatitis C [facility] Test 11:27:02 screening (procedure) [code = 227989453] Future Scheduled 2022-06-25 COVID-19 VACCINE (3 [facility] Test 11:27:02 - Booster for Moderna series) [code = COVID-19 VACCINE (3 - Booster for Moderna series)] Future Scheduled 2022-06-25 [facility] for [facility] Test 11:27:02 malignant neoplasm of cervix (procedure) [code = 644990602] Future Scheduled 2022-06-25 INFLUENZA VACCINE [facility] Test 11:27:02 [code = INFLUENZA VACCINE] Future Scheduled 2022-06-25 [facility]atitis [facility] Test 11:27:02 screening (procedure) [code = 319629047] Encounters Start End Encounter Admission Attending Care Care Encounter Source Date/Time Date/Time Type Type Clinicians Facility Department ID 2021-05-21 2021-05-21 Outpatient ELIER [facility] [id number] [address] [place] [address] 00:00:00 00:00:00 PREMA [address] 2021-02-20 2021-02-20 [facility] [id number] Univers 16:30:00 17:12:02 Visit Sharon LYNCH [id number] i ty of [place] [id number] Duran as THUY?BLEA [id number] [address] 2021-02-20 2021-02-20 [facility] [id number] Univers 16:30:00 17:12:02 SHARON fraser [facility] 2021-02-20 2021-02-20 [facility] [id number] Univers 16:30:00 17:12:02 SHARON fraser [facility] 2021-01-19 2021-01-19 [employer] Omar, [facility] Lab Main [facility] [id number] Univers 09:34:27 09:49:27 Visit Purnima Hughes [id number] ity pricila [facility] [id number] [place] [id number] Or adriel [address] 2021-01-19 2021-01-19 [facility] [id number] Univers 08:00:00 08:00:00 PURNIMA fraser [facility] 2021-01-18 2021-01-18 [facility] [id number] Univers 10:24:08 11:32:11 Visit Purnima LYNCH [id number] it y of [facility] [id number] Duran as THUY?BLEA [id number] [address] 2021-01-18 2021-01-18 Outpatient [facility] [id number] Univers 10:00:00 11:32:11 PURNIMA fraser [facility] 2021-01-18 2021-01-18 Orders Doctor JAEGER [id number] Univers 00:00:00 00:00:00 Only Unassigned, WES[place] [id number] ity of [place] [facility] [id number] [place]an as [id number] [address] 2021-01-18 2021-01-18 Telephone Steven, [facility] [id number] 00:00:00 00:00:00 [facility] [id number] i ty of [place] [id number] Duran as THUY?BLEA [id number] Or adriel ROSS [address] [place] [address] MEDICAL OFFICE BUILDING 2019-06-15 2019-06-15 [facility] [id number] [address] [place] [address] 00:00:00 00:00:00 EMILY [address] Results This patient has no known results.
--- NOTE | 2022-07-24 18:29 | EDPHYS ---
Physician Documentation [facility] Name: Nilda Simeon Age: 37 yrs Sex: Female : 1985 Arrival Date: 07/24/2022 Time: 16:50 Bed 10 Private MD: ED Physician Rui Bailey HPI: 07/24 17:15 This 37 yrs old Female presents to ER via Ambulatory with complaints of Ear cp Pain. 17:15 The patient presents with a fullness, hearing loss, partial, pain, that is acute, cp tinnitus. The complaints affect the right ear and left ear. Onset: The symptoms/episode began/occurred 2 week(s) ago. Associated signs and symptoms: Pertinent positives: sore throat, Pertinent negatives: cough, fever, rhinorrhea, sinus trouble, vertigo, vomiting. Severity of symptoms: in the emergency department the symptoms are unchanged despite home interventions. Historical: - Allergies: 16:57 Sulfa (Sulfonamide Antibiotics); ll1 - PMHx: 16:57 None; ll1 - PSHx: 16:57 LEEP; ll1 - Immunization history:: Adult Immunizations up to date. - Social history:: Smoking status: Patient denies any tobacco usage or history of. ROS: 17:20 Constitutional: Negative for body aches, chills, fever, poor PO intake. cp 17:20 Eyes: Negative for injury, pain, redness, and discharge. cp 17:20 ENT: Positive for ear pain, hearing loss, sore throat, tinnitus, Negative for drainage from ear(s), sinus congestion, sinus pain, difficulty swallowing, difficulty handling secretions. 17:20 Cardiovascular: Negative for chest pain, palpitations. 17:20 Respiratory: Negative for cough, shortness of breath, wheezing. 17:20 Abdomen/GI: Negative for abdominal pain, vomiting, diarrhea, constipation. 17:20 Neuro: Negative for altered mental status, headache, weakness. 17:20 All other systems are negative. Exam: 17:25 Constitutional: The patient appears in no acute distress, alert, awake, non-toxic, well cp developed, well nourished. 17:25 Head/Face: Normocephalic, atraumatic. cp 17:25 Eyes: Periorbital structures: appear normal, Conjunctiva: normal, no exudate, no injection, Sclera: no appreciated abnormality, Lids and lashes: appear normal, bilaterally. 17:25 ENT: External ear(s): are unremarkable, Ear canal(s): cerumen impaction, that is severe, bilaterally, TM's: not visable, Nose: is normal, Mouth: Lips: moist, Oral mucosa: pink and intact, moist, Posterior pharynx: is normal, airway is patent, no erythema, no exudate. 17:25 Neck: ROM/movement: is normal, is supple, without pain, no range of motions limitations. Vital Signs: 16:55 BP 136 / 106; Pulse 62; Resp 17; Temp 98.4; Pulse Ox 100% ; ll1 MDM: 17:04 Patient medically screened. cp 17:30 Differential diagnosis: otitis media, otitis externa, ruptured TM, foreign body, cp cerumen impaction, barotrauma . 18:28 Data reviewed: vital signs, nurses notes. cp 18:28 Counseling: I had a detailed discussion with the patient and/or guardian regarding: the cp historical points, exam findings, and any diagnostic results supporting the discharge/admit diagnosis, lab results, to return to the emergency department if symptoms worsen or persist or if there are any questions or concerns that arise at home. Response to treatment: the patient's symptoms have markedly improved after treatment, and as a result, I will discharge patient. 07/24 16:58 Order name: Strep cp 07/24 18:04 Order name: Throat Culture EDMS 07/24 17:07 Order name: Misc. Order: Ear irrigation for impacted cerumen; Complete Time: 18:33 zm Administered Medications: No medications were administered Disposition Summary: 07/24/22 18:29 Discharge Ordered Location: Home cp Problem: new cp Symptoms: have improved cp Condition: Stable cp Diagnosis - Impacted cerumen, bilateral cp - Acute pharyngitis, unspecified cp Followup: cp - With: Marissa Knight MD - When: 2 - 3 days - Reason: Worsening of condition Discharge Instructions: - Discharge Summary Sheet cp - Earwax Buildup, Adult cp - Pharyngitis cp - Sore Throat cp - Ear Irrigation cp Forms: - Medication Reconciliation Form cp - Thank You Letter cp - Antibiotic Education cp - Prescription Opioid Use cp Prescriptions: - Ciprodex 0.3-0.1 % Otic drops,suspension - instill 4 drops by OTIC route every 12 hours for 7 days , for ears ONLY; 1 jmm unit; Refills: 0, Product Selection Permitted - Cortisporin-TC 3.3-3-10-0.5 mg/mL Otic drops,suspension - instill 4 drops by OTIC route every 6 hours; 1 unit; Refills: 0, Product cp Selection Permitted Addendum: 07/25/2022 20:57 Co-signature as Attending Physician, Rui CXO was immediately available on-site m s3 in the Emergency Department for consultation in the care of the patient. Signatures: Dispatcher [employer] EDMS Ramesh Bermudez PA PA cp Lewis, Lynsay, RN RN ll1 Rui Bailey DO DO ms3 Yesica Duggan Corrections: (The following items were deleted from the chart) 07/24 16:57 16:57 PMHx: HPV; ll1 ll1
--- NOTE | 2022-07-24 18:29 | ER ---
Nurse's Notes [facility] Name: Nilda Simeon Age: 37 yrs Sex: Female : 1985 Arrival Date: 07/24/2022 Time: 16:50 Bed 10 Private MD: Diagnosis: Impacted cerumen, bilateral;Acute pharyngitis, unspecified Presentation: 07/24 16:55 Chief complaint: Patient states: B ear pain, muffled hearing, and hearing noises for ll1 the past 2 weeks off/on. Coronavirus screen: Client denies travel out of the [place] in the last 14 days. At this time, the client does not indicate any symptoms associated with coronavirus-19. Ebola Screen: Patient denies travel to an Ebola-affected area in the 21 days before illness onset. Initial Sepsis Screen: Does the patient meet any 2 criteria? No. Patient's initial sepsis screen is negative. Does the patient have a suspected source of infection? Yes: Other: ears. Risk Assessment: Do you want to hurt yourself or someone else? Patient reports no desire to harm self or others. Onset of symptoms was July 10, 2022. 16:55 Method Of Arrival: Ambulatory ll1 16:55 Acuity: NADINE 4 ll1 Triage Assessment: 16:57 General: Appears in no apparent distress. Behavior is calm, cooperative, appropriate ll1 for age. Pain: Complains of pain in right ear and left ear Pain currently is 2 out of 10 on a pain scale. EENT: Reports pain ringing. Historical: - Allergies: 16:57 Sulfa (Sulfonamide Antibiotics); ll1 - PMHx: 16:57 None; ll1 - PSHx: 16:57 LEEP; ll1 - Immunization history:: Adult Immunizations up to date. - Social history:: Smoking status: Patient denies any tobacco usage or history of. Screenin:47 [facility] ED Fall Risk Assessment (Adult) History of falling in the last 3 months, iw including since admission. Abuse screen: Denies threats or abuse. Denies injuries from another. Nutritional screening: No deficits noted. Tuberculosis screening: No symptoms or risk factors identified. Assessment: 18:47 Reassessment: Patient appears in no apparent distress at this time. Patient and/or iw family updated on plan of care and expected duration. Pain level reassessed. Patient states feeling better. Patient states symptoms have improved. Vital Signs: 16:55 BP 136 / 106; Pulse 62; Resp 17; Temp 98.4; Pulse Ox 100% ; ll1 ED Course: 16:53 Patient arrived in ED. mr 16:54 Ramesh Bermudez PA is PHCP. cp 16:55 Rui Bailey DO is Attending Physician. cp 16:57 Triage completed. ll1 16:58 Arm band placed on Patient placed in an exam room, on a stretcher. ll1 17:06 Strep Sent. zm 18:28 Marissa Knight MD is Referral Physician. cp 18:33 Jina Ruvalcaba, RN is Primary Nurse. iw 18:47 No provider procedures requiring assistance completed. Patient did not have IV access iw during this emergency room visit. 18:48 Patient has correct armband on for positive identification. iw Administered Medications: No medications were administered Medication: 18:48 VIS not applicable for this client. iw Outcome: 18:29 Discharge ordered by MD. cp 18:47 Discharged to home ambulatory. iw 18:47 Condition: good 18:47 Discharge instructions given to patient, Instructed on discharge instructions, the need for admit, medication usage, Demonstrated understanding of instructions, follow-up care, medications, Prescriptions given X 1. 18:48 Patient left the ED. iw Signatures: Marjorie Lundberg mr Jina Ruvalcaba, RN RN iw Ramesh Bermudez PA PA cp Lewis, Lynsay, RN RN 1 Yesica Duggan Corrections: (The following items were deleted from the chart) 16:57 16:57 PMHx: HPV; ll1 ll1 16:58 16:55 BP 136 / 106; Pulse 62bpm; Resp 17bpm; Pulse Ox 100%; ll1 ll1
[2022-07-24 19:59] VITALS: BP 136/106; TEMP 98.4; O2SAT 100
== END 2022-07-24 18:48 | disposition home or self-care (01) ==
LOC: ER 16:50
DX: H61.23 Impacted cerumen, bilateral (principal); J02.9 Acute pharyngitis, unspecified
CPT/HCPCS: 87070; 87081; 99283

== ENCOUNTER 2023-01-23 07:28 | Emergency (ER) | payer BC, OTHER ==
[2023-01-23 07:52] LABS: Absolute Lymphocytes (CBC) 1.6 K/uL (0.7-4.9); Hematocrit 35.4 % (36.0-45.0); Lymphocytes % 24.4 % (15.3-44.8); MCV 89.3 fL (80-100); MPV 7.2 fL (7.6-11.3); Platelets 264 thou/uL (152-406); RBC Red Blood Cell Count 3.96 M/uL (3.86-4.86)
[2023-01-23] MEDS ORDERED: NA CHLORIDE 0.9% 1,000 ML ONE (07:52)
[2023-01-23 08:03] LABS: Albumin 3.2 g/dL (3.4-5.0); Bilirubin Total 0.5 mg/dL (0.2-1.0); Potassium 3.8 mEq/L (3.5-5.1); Protein, Total 7.7 g/dL (6.4-8.2)
--- NOTE | 2023-01-23 09:47 | RAD REPORT ---
EXAM DESCRIPTION: CT - Abdomen Pelvis W Contrast - 01/23/2023 9:28 am CLINICAL HISTORY: Abdominal pain COMPARISON: June 2022 TECHNIQUE: Computed axial tomography of the abdomen pelvis was obtained. 100 cc Isovue-300 was admin istered intravenously. Oral contrast was not requested which limits evaluation of bowel and appendix All CT scans are performed using dose optimization technique as appropriate and may include automated exposure control or mA/KV adjustment according to patient size. FINDINGS: Cholecystectomy. The liver, spleen, pancreas, adrenal and kidneys appear unremarkable. There is no evidence of diverticulitis. No adnexal mass IMPRESSION: No acute abnormality is displayed.
--- NOTE | 2023-01-23 09:53 | EDPHYS ---
Physician Documentation [facility] Name: Nilda Simeon Age: 37 yrs Sex: Female : 1985 Arrival Date: 01/23/2023 Time: 07:28 Bed 8 Private MD: ED Physician Otto Mcgregor HPI: 01/23 07:46 This 37 yrs old Female presents to ER via EMS with complaints of Abdominal sp3 Pain. 07:46 37-year-old female with history of depression now presents to the ED with abdominal sp3 pain that started yesterday evening after dinner in the epigastric region. Patient has had a cholecystectomy but no other surgical history. She denies vomiting, fever, diarrhea, back pain, dysuria, SILVERSMITH APPRENTICE symptoms, visual hematuria, urinary symptoms, chest pain, shortness of breath, back pain, rash, syncope, neurological symptoms, travel history, known sick contacts, or any other signs or symptoms on ROS at this time.. 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 - Social history:: Smoking status: Patient denies any tobacco usage or history of. ROS: 07:46 Constitutional: Negative for fever, chills, and weight loss, Eyes: Negative for injury, sp3 pain, redness, and discharge, ENT: Negative for injury, pain, and discharge, Neck: Negative for injury, pain, and swelling, Cardiovascular: Negative for chest pain, palpitations, and edema, Respiratory: Negative for shortness of breath, cough, wheezing, and pleuritic chest pain, Back: Negative for injury and pain, MS/Extremity: Negative for injury and deformity, Skin: Negative for injury, rash, and discoloration, Neuro: Negative for headache, weakness, numbness, tingling, and seizure, Psych: Negative for depression, anxiety, suicide ideation, homicidal ideation, and hallucinations, Allergy/Immunology: Negative for hives, rash, and allergies, Endocrine: Negative for neck swelling, polydipsia, polyuria, polyphagia, and marked weight changes, 07:46 All other systems are negative, Exam: 07:47 Constitutional: This is a well developed, well nourished patient who is awake, alert, sp3 and in no acute distress. Head/Face: Normocephalic, atraumatic. Eyes: Pupils equal round and reactive to light, extra-ocular motions intact. Lids and lashes normal. Conjunctiva and sclera are non-icteric and not injected. Cornea within normal limits. Periorbital areas with no swelling, redness, or edema. ENT: Nares patent. No nasal discharge, no septal abnormalities noted. External auditory canals are clear. Oropharynx with no redness, swelling, or masses, exudates, or evidence of obstruction, uvula midline. Mucous membranes moist. Neck: Trachea midline, no thyromegaly or masses palpated, and no cervical lymphadenopathy. Supple, full range of motion without nuchal rigidity, or vertebral point tenderness. No Meningismus. Chest/axilla: Normal chest wall appearance and motion. Nontender with no deformity. No lesions are appreciated. Cardiovascular: Regular rate and rhythm with a normal S1 and S2. No gallops, murmurs, or rubs. Normal PMI, no JVD. No pulse deficits. Respiratory: Lungs have equal breath sounds bilaterally, clear to auscultation and percussion. No rales, rhonchi or wheezes noted. No increased work of breathing, no retractions or nasal flaring. Back: No spinal tenderness. No costovertebral tenderness. Full range of motion. Skin: Warm, dry with normal turgor. Normal color with no rashes, no lesions, and no evidence of cellulitis. MS/ Extremity: Pulses equal, no cyanosis. Neurovascular intact. Full, normal range of motion. Neuro: Awake and alert, GCS 15, oriented to person, place, time, and situation. Cranial nerves II-XII grossly intact. Motor strength 5/5 in all extremities. Sensory grossly intact. Cerebellar exam normal. Normal gait. Psych: Awake, alert, with orientation to person, place and time. Behavior, mood, and affect are within normal limits. 07:47 Abdomen/GI: Patient has epigastric pain without peritoneal signs, rebound or guarding. No CVA tenderness reported and no lower abdominal pain noted., Vital Signs: 07:32 BP 111 / 82; Pulse 72; Resp 16; Pulse Ox 96% on R/A; Weight 68.04 kg; Height 5 ft. 6 iw in. ; Pain 8/10; 10:14 BP 106 / 77; Pulse 77; Resp 15; Pulse Ox 100% on R/A; kd3 07:32 Body Mass Index 24.21 (68.04 kg, 167.64 cm) iw 07:32 Pain Scale: Adult iw MDM: 07:35 Patient medically screened. sp3 07:47 Data reviewed: vital signs, nurses notes, lab test result(s), radiologic studies. ED sp3 course: 37-year-old female with epigastric pain. Differential diagnosis includes gastritis, functional abdominal pain, pancreatitis, colitis, muscle strain, among others. I am not highly suspicious for vascular pathology including aortic aneurysm or dissection, pathology including UTI/pyelonephritis spectrum, kidney stone, or SILVERSMITH APPRENTICE pathology. Workup will include CT scan of the abdomen pelvis, laboratory values, urine analysis and observation. Patient declined pain medication at this time but we will add if needed. Disposition pending workup and patient course.. 09:52 ED course: Abdominal workup and CT scan demonstrate no acute abnormality. We will sp3 safely discharge patient home at this time with general precautions.. 01/23 07:35 Order name: CBC with Diff; Complete Time: 09:48 sp3 01/23 07:35 Order name: CMP; Complete Time: 09:48 sp3 01/23 07:35 Order name: Lipase; Complete Time: 09:48 sp3 01/23 08:25 Order name: Test, Serum; Complete Time: 09:48 hb 01/23 07:35 Order name: CT Abd/Pelvis - IV Contrast Only; Complete Time: 09:48 sp3 01/23 07:35 Order name: IV Saline Lock; Complete Time: 07:37 sp3 01/23 07:35 Order name: Labs collected and sent; Complete Time: 07:37 sp3 01/23 07:35 Order name: NPO; Complete Time: 07:46 sp3 Administered Medications: 07:42 Drug: NS 0.9% IV 1000 ml IV at 1 bolus Per protocol; 1000 mL bolus Route: IV; Rate: 1 iw bolus; Site: right antecubital; 10:14 Follow up: IV Status: Completed infusion; IV Intake: 1000ml kd3 Disposition Summary: 01/23/23 09:52 Discharge Ordered Notes: Location: Home sp3 Condition: Stable sp3 Diagnosis - Abdominal pain, Generalized sp3 Followup: sp3 - With: Private Physician - When: Upon discharge from the Emergency Department - Reason: Continuance of care Discharge Instructions: - Discharge Summary Sheet sp3 - Abdominal Pain, Adult sp3 Forms: - Medication Reconciliation Form sp3 - Thank You Letter sp3 - Antibiotic Education sp3 - Prescription Opioid Use sp3 - Patient Portal Instructions sp3 - Leadership Thank You Letter sp3 Signatures: Dispatcher [employer] Jina Finn, DIAN RN Otto Brown MD MD sp3 Rosa Rodríguez RN kd3
--- NOTE | 2023-01-23 09:53 | ER ---
Nurse's Notes [facility] Name: Nilda Simeon Age: 37 yrs Sex: Female : 1985 Arrival Date: 01/23/2023 Time: 07:28 Bed 8 Private MD: Diagnosis: Abdominal pain, Generalized Presentation: 01/23 07:32 Chief complaint: Patient states: abd pain started last night, worse this morning, /, iw pain is worse when she tries to walk. Coronavirus screen: At this time, the client does not indicate any symptoms associated with coronavirus-19. Ebola Screen: Patient negative for fever greater than or equal to 101.5 degrees Fahrenheit, and additional compatible Ebola Virus Disease symptoms Patient denies exposure to infectious person. Patient denies travel to an Ebola-affected area in the 21 days before illness onset. No symptoms or risks identified at this time. Initial Sepsis Screen: Does the patient meet any 2 criteria? No. Patient's initial sepsis screen is negative. Does the patient have a suspected source of infection? No. Patient's initial sepsis screen is negative. Risk Assessment: Do you want to hurt yourself or someone else? Patient reports no desire to harm self or others. Onset of symptoms was January 22, 2023. 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 - Social history:: Smoking status: Patient denies any tobacco usage or history of. Screenin:00 [facility] ED Fall Risk Assessment (Adult) Score/Fall Risk Level 0 - 2 = Low Risk. Abuse iw screen: Denies threats or abuse. Denies injuries from another. Nutritional screening: No deficits noted. Tuberculosis screening: No symptoms or risk factors identified. Assessment: 08:00 General: Appears in no apparent distress. Behavior is calm, cooperative. Pain: iw Complains of pain in right upper quadrant and right lower quadrant. Neuro: Level of Consciousness is awake, alert, obeys commands, Oriented to person, place, time, situation, Moves all extremities. Full function. Cardiovascular: Patient's skin is warm and dry. Respiratory: Respiratory effort is even, unlabored, Respiratory pattern is regular, symmetrical. GI: Abd is soft X 4 quads Abdomen is tender to palpation in right lower quadrant. Derm: Skin is intact, is healthy with good turgor. Vital Signs: 07:32 BP 111 / 82; Pulse 72; Resp 16; Pulse Ox 96% on R/A; Weight 68.04 kg; Height 5 ft. 6 iw in. ; Pain 8/10; 10:14 BP 106 / 77; Pulse 77; Resp 15; Pulse Ox 100% on R/A; kd3 07:32 Body Mass Index 24.21 (68.04 kg, 167.64 cm) iw 07:32 Pain Scale: Adult iw ED Course: 07:29 Patient arrived in ED. eb 07:30 Otto Mcgregor MD is Attending Physician. sp3 07:32 Jina Ruvalcaba, RN is Primary Nurse. iw 07:34 Triage completed. iw 07:34 Arm band placed on. iw 07:37 CBC with Diff Sent. bc6 07:37 CMP Sent. bc6 07:37 Lipase Sent. bc6 07:37 Inserted saline lock: 20 gauge in right antecubital area, using aseptic technique. bc6 Blood collected. 09:30 CT Abd/Pelvis - IV Contrast Only In Process Unspecified. EDMS 10:09 Patient has correct armband on for positive identification. iw 10:14 Provided Education on: . kd3 10:14 No provider procedures requiring assistance completed. IV discontinued, intact, kd3 bleeding controlled, No redness/swelling at site. Pressure dressing applied. Administered Medications: 07:42 Drug: NS 0.9% IV 1000 ml IV at 1 bolus Per protocol; 1000 mL bolus Route: IV; Rate: 1 iw bolus; Site: right antecubital; 10:14 Follow up: IV Status: Completed infusion; IV Intake: 1000ml kd3 Medication: 08:00 VIS not applicable for this client. iw Intake: 10:14 IV: 1000ml; Total: 1000ml. kd3 Outcome: 09:52 Discharge ordered by . sp3 10:14 Discharged to home ambulatory, kd3 10:14 Condition: stable 10:14 Discharge instructions given to patient, Instructed on discharge instructions, follow up and referral plans. Demonstrated understanding of instructions, follow-up care, 10:15 Patient left the ED. kd3 Signatures: Dispatcher [employer] Jina Finn, RN Makenna Conde Setul, MD MD sp3 Rosa Rodríguez RN RN kd3 Marla Irizarry [facility]
[2023-01-23 10:38] VITALS: BP 106/77; O2SAT 100
== END 2023-01-23 10:15 | disposition home or self-care (01) ==
LOC: ER 07:28
DX: R10.84 Generalized abdominal pain (principal); Z88.2 Allergy status to sulfonamides
CPT/HCPCS: 96361; 85025; 36415; 84703; 83690; 80053; 74177; 96360; 99284; Q9967; J7030

== ENCOUNTER → 2023-03-17 | Emergency (ER) | payer BC ==
[~2023-03-17] MED LIST: FAMOTIDINE 20 MG/2 ML VIAL IV ONE; NA CHLORIDE 0.9% 1,000 ML ONE; ONDANSETRON 4 MG/2 ML VIAL ONE
[2023-03-17 13:33] LABS: Absolute Lymphocytes (CBC) 2.1 K/uL (0.7-4.9); Lymphocytes % 34.6 % (15.3-44.8); MPV 7.2 fL (7.6-11.3); Platelets 277 thou/uL (152-406); RBC Red Blood Cell Count 3.87 M/uL (3.86-4.86); Urine Bilirubin NEGATIVE (Negative); Urine Blood Negative (Negative); Urine Clarity Clear (Clear); Urine Color Light-Yellow (Yellow); Urine Glucose NEGATIVE (Negative); Urine Protein NEGATIVE (Negative); Urine Urobilinogen Normal (Normal); Urine pH 6.5 (5.0-7.0)
[2023-03-17 13:58] LABS: Albumin 3.2 g/dL (3.4-5.0); Bilirubin Total 0.3 mg/dL (0.2-1.0); Potassium 3.8 mEq/L (3.5-5.1); Protein, Total 7.4 g/dL (6.4-8.2)
--- NOTE | 2023-03-17 14:01 | RAD REPORT ---
EXAM DESCRIPTION: CTAbdomen Pelvis W Contrast - 03/17/2023 1:49 pm CLINICAL HISTORY: Abdominal pain. ABD PAIN COMPARISON: Abdomen Pelvis W Contrast dated 01/23/2023; Abdomen Pelvis W Contrast dated 07/08/2022 TECHNIQUE: Biphasic CT imaging of the abdomen and pelvis was performed with 100 ml non-ionic IV cont rast. All CT scans are performed using dose optimization technique as appropriate and may include automated exposure control or mA/KV adjustment according to patient size. FINDINGS: The lung bases are clear. The liver, spleen, adrenal glands and kidneys are within normal limits. 4.7 x 2.0 cm oblong collectio n is noted in the tail the pancreas, new since prior study. Cholecystectomy. No bowel obstruction, free air, free fluid or abscess. Prominent stool is present throughout the colo n. The appendix is normal. No evidence of significant lymphadenopathy. No suspicious bony findings. IMPRESSION: [place] fluid collection measuring 4.7 x 2.0 cm in the tail the pancreas noted. This is n onspecific but is new since the prior CT and may be related to pancreatic pseudocyst from prior episo manuela of pancreatitis. Recommend correlation with pancreatitis history.
--- NOTE | 2023-03-17 14:34 | ER ---
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 Coronavirus screen: Vaccine status: Patient reports receiving the 2nd dose of the covid vaccine. Client denies travel out of the [place] in the last 14 days. Ebola Screen: Patient negative for fever greater than or equal to 101.5 degrees Fahrenheit, and additional compatible Ebola Virus Disease symptoms Patient denies exposure to infectious person. Patient denies travel to an Ebola-affected area in the 21 days before illness onset. Initial Sepsis Screen: Does the patient meet any 2 criteria? No. Patient's initial sepsis screen is negative. Does the patient have a suspected source of infection? No. Patient's initial sepsis screen is negative. Risk Assessment: Do you want to hurt yourself or someone else? Patient reports no desire to harm self or others. Onset of symptoms was March 17, 2023 at 12:00. 13:16 Method Of Arrival: Ambulatory 3 13:16 Acuity: NADINE 3 kb3 Triage Assessment: 13:18 General: Appears in no apparent distress. uncomfortable, Behavior is calm, cooperative. kb3 Pain: Complains of pain in right lower quadrant Pain does not radiate. Pain currently is 8 out of 10 on a pain scale. Quality of pain is described as sharp, Pain began suddenly, 1 hour ago. GI: Reports lower abdominal pain, nausea. 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 - Social history:: Smoking status: Patient denies any tobacco usage or history of. - Family history:: not pertinent. Screenin:36 [facility] ED Fall Risk Assessment (Adult) Score/Fall Risk Level 0 - 2 = Low Risk nj1 Oriented to surroundings, Maintained a safe environment, Hourly rounding (assess needs \T\ fall precautionary measures) done. Abuse screen: Denies threats or abuse. Denies injuries from another. Nutritional screening: No deficits noted. Tuberculosis screening: No symptoms or risk factors identified. Assessment: 13:25 General: Appears in no apparent distress. uncomfortable, Behavior is calm, cooperative, nj1 appropriate for age. 13:25 Pain: Complains of pain in right lower quadrant Pain currently is 5 out of 10 on a pain nj1 scale. at worst was 10 out of 10 on a pain scale. Neuro: Level of Consciousness is awake, alert, obeys commands, Oriented to person, place, time, situation. Cardiovascular: Patient's skin is warm and dry. Respiratory: Airway is patent Respiratory effort is even, unlabored. GI: Reports lower abdominal pain, nausea. 14:00 Reassessment: Patient appears in no apparent distress at this time. Patient and/or nj1 family updated on plan of care and expected duration. Pain level reassessed. Patient is alert, oriented x 3, equal unlabored respirations, skin warm/dry/pink. Patient states feeling better. 15:04 Reassessment: Patient appears in no apparent distress at this time. Patient is alert, nj1 oriented x 3, equal unlabored respirations, skin warm/dry/pink. Patient states feeling better. Patient states symptoms have improved. Vital Signs: 13:16 BP 120 / 88; Pulse 84; Resp 20; Temp 96.8; Pulse Ox 100% ; Weight 75.75 kg; Height 5 kb3 ft. 6 in. ; Pain 8/10; 15:04 BP 116 / 86; Pulse 62; Resp 16; Pulse Ox 99% on R/A; nj1 13:16 Body Mass Index 26.95 (75.75 kg, 167.64 cm) kb3 13:16 Pain Scale: Adult kb3 ED Course: 12:33 Patient arrived in ED. mg5 12:40 Ramesh García MD is Attending Physician. [facility] 13:18 Triage completed. kb3 13:18 Arm band placed on right wrist. kb3 13:23 Initial lab(s) drawn, by me, sent to lab. Inserted saline lock: 20 gauge in right mv antecubital area, using aseptic technique. Blood collected. 13:32 Karma Ochoa, RN is Primary Nurse. nj1 13:36 Patient has correct armband on for positive identification. nj1 13:51 CT Abd/Pelvis - IV Contrast Only In Process Unspecified. EDHI 14:24 Tod Mcgregor DO is Referral Physician. [facility] 14:26 Eric Chan MD is Referral Physician. [facility] 15:06 Provided Education on: discharge instructions. nj1 15:06 No provider procedures requiring assistance completed. IV discontinued, intact, nj1 bleeding controlled. Administered Medications: 13:28 Drug: NS 0.9% IV 1000 ml IV at 1 bolus Per protocol; 1000 mL bolus Route: IV; Rate: 1 nj1 bolus; Site: right antecubital; 14:30 Follow up: Response: No adverse reaction; IV Status: Completed infusion; IV Intake: nj1 1000ml 13:29 Drug: Ondansetron IVP 4 mg IVP once; over 2 minutes Route: IVP; Site: right antecubital;nj1 14:03 Follow up: Response: No adverse reaction; Nausea is decreased nj1 13:31 Drug: Famotidine IVP 20 mg IVP once; dilute with 10 mL 0.9% NaCl; give over 2 minutes nj1 Route: IVP; Site: right antecubital; 14:03 Follow up: Response: No adverse reaction nj1 Medication: 15:07 VIS not applicable for this client. nj1 Intake: 14:30 IV: 1000ml; Total: 1000ml. nj1 Outcome: 14:33 Discharge ordered by . [facility] 15:06 Discharged to home ambulatory, nj1 15:06 Condition: stable 15:06 Discharge instructions given to patient, Instructed on discharge instructions, follow up and referral plans. medication usage, Demonstrated understanding of instructions, follow-up care, medications, Prescriptions given X 3, 15:07 Patient left the ED. nj1 Signatures: Dispatcher [employer] EDHI Ramesh García MD MD cha Bradberry, Kelly, RN RN kb3 Karma Ochoa, RN RN nj1 Kerry Singh mg5 Chai, Ruth mv
--- NOTE | 2023-03-17 14:34 | EDPHYS ---
Physician Documentation [facility] Name: Nilda Simeon Age: 38 yrs Sex: Female : 1985 Arrival Date: 03/17/2023 Time: 12:31 Bed 11 Private MD: ED Physician Ramesh García HPI: 03/17 14:19 This 38 yrs old Female presents to ER via Ambulatory with complaints of kenny Abdominal Pain. 14:19 The patient presents with abdominal pain right lower quadrant. Onset: The kenny symptoms/episode began/occurred just prior to arrival, today. The symptoms do not radiate. Associated signs and symptoms: none. The symptoms are described as sharp. Modifying factors: The symptoms are alleviated by nothing, the symptoms are aggravated by nothing. Severity of pain: At its worst the pain was moderate in the emergency department the pain has improved moderately. The patient has not experienced similar symptoms in the past. [employer]: 13:18 LMP 03/10/2023, unknown kb3 Historical: - Allergies: 13:18 Sulfa (Sulfonamide Antibiotics); kb3 - Home Meds: 13:18 Wellbutrin Oral daily [Active]; kb3 - PMHx: 13:18 depressive disorder; PCOS (LEEP); kb3 - PSHx: 13:18 LEEP; kb3 - Immunization history:: Adult Immunizations up to date, Client reports receiving the 2nd dose of the Covid vaccine, Last tetanus immunization: up to date. - Social history:: Smoking status: Patient denies any tobacco usage or history of. - Family history:: not pertinent. ROS: 14:19 Constitutional: Negative for fever, chills, and weight loss, Eyes: Negative for injury, kenny pain, redness, and discharge, ENT: Negative for injury, pain, and discharge, Neck: Negative for injury, pain, and swelling, Cardiovascular: Negative for chest pain, palpitations, and edema, Respiratory: Negative for shortness of breath, cough, wheezing, and pleuritic chest pain, Back: Negative for injury and pain, : Negative for injury, bleeding, discharge, and swelling, MS/Extremity: Negative for injury and deformity, Skin: Negative for injury, rash, and discoloration, Neuro: Negative for headache, weakness, numbness, tingling, and seizure, Psych: Negative for depression, anxiety, suicide ideation, homicidal ideation, and hallucinations, Allergy/Immunology: Negative for hives, rash, and allergies, Endocrine: Negative for neck swelling, polydipsia, polyuria, polyphagia, and marked weight changes, Hematologic/Lymphatic: Negative for swollen nodes, abnormal bleeding, and unusual bruising, 14:19 Abdomen/GI: Positive for abdominal pain, of the right lower quadrant, Exam: 14:19 Constitutional: This is a well developed, well nourished patient who is awake, alert, kenny and in no acute distress. Head/Face: Normocephalic, atraumatic. Eyes: Pupils equal round and reactive to light, extra-ocular motions intact. Lids and lashes normal. Conjunctiva and sclera are non-icteric and not injected. Cornea within normal limits. Periorbital areas with no swelling, redness, or edema. ENT: Nares patent. No nasal discharge, no septal abnormalities noted. Tympanic membranes are normal and external auditory canals are clear. Oropharynx with no redness, swelling, or masses, exudates, or evidence of obstruction, uvula midline. Mucous membranes moist. Neck: Trachea midline, no thyromegaly or masses palpated, and no cervical lymphadenopathy. Supple, full range of motion without nuchal rigidity, or vertebral point tenderness. No Meningismus. Chest/axilla: Normal chest wall appearance and motion. Nontender with no deformity. No lesions are appreciated. Cardiovascular: Regular rate and rhythm with a normal S1 and S2. No gallops, murmurs, or rubs. Normal PMI, no JVD. No pulse deficits. Respiratory: Lungs have equal breath sounds bilaterally, clear to auscultation and percussion. No rales, rhonchi or wheezes noted. No increased work of breathing, no retractions or nasal flaring. Back: No spinal tenderness. No costovertebral tenderness. Full range of motion. Skin: Warm, dry with normal turgor. Normal color with no rashes, no lesions, and no evidence of cellulitis. MS/ Extremity: Pulses equal, no cyanosis. Neurovascular intact. Full, normal range of motion. Neuro: Awake and alert, GCS 15, oriented to person, place, time, and situation. Cranial nerves II-XII grossly intact. Motor strength 5/5 in all extremities. Sensory grossly intact. Cerebellar exam normal. Normal gait. Psych: Awake, alert, with orientation to person, place and time. Behavior, mood, and affect are within normal limits. 14:19 Abdomen/GI: Inspection: abdomen appears normal, Bowel sounds: normal, Palpation: mild abdominal tenderness, in the epigastric area, right upper quadrant and right lower quadrant, Liver: no appreciated palpable abnormalities, Hernia: not appreciated, Vital Signs: 13:16 BP 120 / 88; Pulse 84; Resp 20; Temp 96.8; Pulse Ox 100% ; Weight 75.75 kg; Height 5 kb3 ft. 6 in. ; Pain 8/10; 15:04 BP 116 / 86; Pulse 62; Resp 16; Pulse Ox 99% on R/A; nj1 13:16 Body Mass Index 26.95 (75.75 kg, 167.64 cm) kb3 13:16 Pain Scale: Adult kb3 MDM: 12:40 Patient medically screened. [facility] 14:21 Differential diagnosis: appendicitis, bowel obstruction, diverticulitis, Dysmenorrhea, kenny Ectopic , Endometriosis, gastritis, non-specific abd pain, pancreatitis, Peptic Ulcer Disease, Peritonitis, Pyelonephritis, Ureterolithiasis, urinary tract infection. Data reviewed: vital signs, nurses notes, lab test result(s), radiologic studies, CT scan. Consideration of Admission/Observation Escalation of care including admission/observation considered. I considered the following discharge prescriptions or medication management in the emergency department Medications were administered in the Emergency Department. See MAR. Independent interpretation of the following test(s) in the Emergency Department CT Scan: My interpretation is ct abd /pelvis. Test considered but Not performed: EKG: no ekg. Historians other than the Patient: patient well informed. Care significantly affected by the following chronic conditions: depression , pcos. 03/17 12:41 Order name: CBC with Diff; Complete Time: 14:07 [facility] 03/17 12:41 Order name: CMP; Complete Time: 14: [facility] 03/17 12:41 Order name: Lipase; Complete Time: 14: [facility] 03/17 12:41 Order name: Test, Urine; Complete Time: 14: [facility] 03/17 12:41 Order name: Urinalysis w/ reflexes; Complete Time: 14:07 [facility] 03/17 12:41 Order name: CT Abd/Pelvis - IV Contrast Only; Complete Time: 14:51 [facility] 03/17 12:41 Order name: IV Saline Lock; Complete Time: 13:23 kenny 03/17 12:41 Order name: Labs collected and sent; Complete Time: 13:23 kenny Administered Medications: 13:28 Drug: NS 0.9% IV 1000 ml IV at 1 bolus Per protocol; 1000 mL bolus Route: IV; Rate: 1 nj1 bolus; Site: right antecubital; 14:30 Follow up: Response: No adverse reaction; IV Status: Completed infusion; IV Intake: nj1 1000ml 13:29 Drug: Ondansetron IVP 4 mg IVP once; over 2 minutes Route: IVP; Site: right antecubital;nj1 14:03 Follow up: Response: No adverse reaction; Nausea is decreased nj1 13:31 Drug: Famotidine IVP 20 mg IVP once; dilute with 10 mL 0.9% NaCl; give over 2 minutes nj1 Route: IVP; Site: right antecubital; 14:03 Follow up: Response: No adverse reaction nj1 Disposition Summary: 03/17/23 14:33 Discharge Ordered Notes: Location: Home kenny Problem: new kenny Symptoms: have improved kenny Condition: Stable kenny Diagnosis - Abdominal tenderness kenny - Abnormal findings on diagnostic imaging of other abdominal regions, including kenny retroperitoneum - 4.7 cm x 1.2 cm fluid collection in pancreatic tail Followup: kenny - With: Private Physician - When: 2 - 3 days - Reason: Recheck today's complaints, Continuance of care, Re-evaluation by your physician Followup: kenny - With: Tod Mcgregor DO - When: 2 - 3 days - Reason: Recheck today's complaints, Re-evaluation by your physician Followup: kenny - With: Eric Chan MD - When: 2 - 3 days - Reason: Recheck today's complaints, Re-evaluation by your physician Discharge Instructions: - Discharge Summary Sheet kenny - Abdominal Pain, Adult kenny - Abdominal Pain, Adult, [id number] kenny - Incidental Abnormal Radiological Finding [facility] Forms: - Medication Reconciliation Form kenny - Thank You Letter kenny - Antibiotic Education kenny - Prescription Opioid Use kenny - Patient Portal Instructions kenny - Leadership Thank You Letter [facility] Prescriptions: - ondansetron 4 mg Oral Tablet,disintegrating - take 1 tablet ORAL route every 6-8 hours for 5 days; 20 tablet; Refills: 0, kenny Product Selection Permitted - Pepcid 20 mg Oral Tablet - take 1 tablet ORAL route every 12 hours for 10 days; 20 tablet; Refills: 0, kenny Product Selection Permitted - dicyclomine 20 mg Oral tablet - take 1 tablet ORAL route 4 times per day; 28 tablet; Refills: 0, Product kenny Selection Permitted Signatures: Dispatcher [employer] EDMS Ramesh García MD MD cha Bradberry, Kelly, RN RN kb3 Karma Ochoa RN RN nj1 Corrections: (The following items were deleted from the chart) 13:40 13:23 Abdomen Limited+US.RAD.[id number] ordered. EDMS EDMS
[2023-03-17 23:30] VITALS: BP 116/86; TEMP 96.8; O2SAT 99
== END ==
LOC: ER 12:31
DX: R93.5 Abnormal findings on diagnostic imaging of other abdominal regions, including retroperitoneum (principal); Z88.2 Allergy status to sulfonamides
CPT/HCPCS: 85025; 36415; 81025; 81003; 83690; 80053; 74177; Q9967; J2405; J7030